=== PATIENT | male | born 1990 | race Caucasian/White ===

== ENCOUNTER 2016-12-09 10:15 | Emergency (ER) | payer SELFPAY ==
--- NOTE | ~2016-12-09 | ER ---
PATIENT'S NAME: ILEANA THOMPSON [facility] AGE: 26 Y [address] ROOM: [place] [address] LOCATION: [facility] ADMIT DATE: 12/09/2016 ER/Outpatient Report DISCHARGE DATE: 12/09/2016 FAMILY PHYSICIAN: PHYSICIAN, NO ATTENDING PHYSICIAN: Nav Dillon CHIEF COMPLAINT: Left wrist and back pain. HISTORY OF PRESENT ILLNESS: The patient states that he slipped on some ice last night. He has taken ibuprofen twice with no improvement in his symptoms. He did state that he fell kind of backwards toward his left side and landed with an outstretched left arm. The pain is across the top of the wrist. It only hurts with motion and does not hurt at rest. He denies any other issues. The back pain is kind of diffuse in the mid back and along the tail bone. No other issues, and it does not radiate. PAST MEDICAL HISTORY: Documented on the record and reviewed by me. SOCIAL HISTORY: Documented on the record and reviewed by me. MEDICATIONS: Documented on the record and reviewed by me. ALLERGIES: DOCUMENTED ON THE RECORD AND REVIEWED BY ME. REVIEW OF SYSTEMS: All systems were reviewed and negative except as noted in the HPI. PHYSICAL EXAMINATION: VITAL SIGNS: Blood pressure 128/77, pulse 89, respiratory rate 16, temperature 98.5, SpO2 is 97% on room air. Pain is rated 6/10 with a max of 8/10. GENERAL: An age-appropriate male, in no obvious pain or distress, resting comfortably on exam table. NEURO: The patient is awake and alert. GCS 15. No focal deficits or asymmetry on exam. HEENT: Normocephalic, atraumatic. Eyes are PERRL. Oropharynx is clear. NECK: Supple. Trachea is midline. CHEST: Heart is regular rate and rhythm with no murmurs. LUNGS: Clear to auscultation bilaterally with no rhonchi, wheezes, or rales. PATIENT'S NAME: ILEANA THOMPSON [facility] AGE: 26 Y [address] ROOM: [place] [address] LOCATION: [facility] ADMIT DATE: 12/09/2016 ER/Outpatient Report DISCHARGE DATE: 12/09/2016 FAMILY PHYSICIAN: PHYSICIAN, NO ATTENDING PHYSICIAN: Nav Dillon BACK: Notable for a very mild paraspinal tenderness throughout lower thoracic and lumbar region. There is mild tenderness over the coccyx. There is no pain or tenderness at the sciatic notch. No focal midline back pain. ABDOMEN: Soft, nontender, and nondistended. No rebound, guarding, or masses. EXTREMITIES: Unremarkable except for the left wrist. There is pain with palpation along the distal radius and ulna. No focal tenderness. No pain at the anatomical snuffbox. No pain with axial loading of the thumb. 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 He has full passive range of motion and active range of motion, though it is slow and limited by pain. There is no laxity of the wrist joint appreciated on exam. No piano sweet sign. SKIN: Intact throughout. Warm and dry. LABORATORY DATA AND X-RAYS: X-rays of the left wrist were obtained and negative per my read and confirmed by Radiology opinion. IMPRESSION: 1. Fall on outstretched arm. 2. Left wrist pain. 3. Back pain, musculoskeletal. EMERGENCY DEPARTMENT COURSE: The patient was evaluated as above. X-rays of the wrist were obtained and negative per Radiology. The patient does not warrant x-rays of the back at this time. He is given Tylenol for his discomfort. He is given a cock-up wrist splint. Tylenol and ibuprofen for pain. Follow up with primary care physician if not improving in 3 to 5 days. Rest, exercise, ice as needed as well. Return if worsening. MD NOLAN ECKERT/na /[id number] d: 12/09/162006 t: 12/11/16822, OUTPATIENT REPORT
== END 2016-12-09 12:50 | disposition disaster alternative care site (69) ==
LOC: GACC 10:15
DX: M25.532 Pain in left wrist (principal); M54.6 Pain in thoracic spine; M54.5 Low back pain; W19.XXXA Unspecified fall, initial encounter

== ENCOUNTER 2016-12-30 18:44 | Emergency (ER) | payer MEDICAID ==
--- NOTE | ~2016-12-30 | ER ---
PATIENT'S NAME: ILEANA TOHMPSON [facility] AGE: 26 Y [address] ROOM: [place] [address] LOCATION: [facility] ADMIT DATE: 12/30/2016 ER/Outpatient Report DISCHARGE DATE: 12/30/2016 FAMILY PHYSICIAN: Gregory Santana MD ATTENDING PHYSICIAN: Keegan Mora Admission date and time documented in the medical record. I saw the patient at 1900 hours. CHIEF COMPLAINT: Left chest tightness with left arm numbness and tingling. He also has anxiety. HISTORY OF PRESENT ILLNESS: This patient is a 26-year-old male, who about 30 minutes prior to admission to the emergency room developed some left anterior chest tightness, heaviness, and numbness down his left arm, and some tingling down his left arm. Got anxious about it and anxiety grew and grew. He started to have shortness of breath. No nausea, vomiting, diarrhea, or abdominal pain. The patient did get a little bit lightheaded, dizzy, but no syncope or near syncope. Recently, he has had upper respiratory infection. No headache, eyes, ears, nose, throat, neck, or spine pain. No fall or trauma. No urinary symptomatology. No joint or muscle swelling, redness, or pain. No skin eruptions or rash. Does have a history of anxiety, depression, but no psychosis. No neuro changes or endocrine problems. HOME MEDICATIONS: None. ALLERGIES: NONE. SOCIAL HISTORY: The patient smokes a pack of cigarettes per day. Occasional intake of alcohol. SIGNIFICANT PAST MEDICAL HISTORY: Tobacco abuse and anxiety. OPERATIONS: None. REVIEW OF SYSTEMS: All systems reviewed by me are negative with the exception of those discussed in the history of present illness. PATIENT'S NAME: ILEANA THOMPSON [facility] AGE: 26 Y [address] ROOM: [place], [place] [address] LOCATION: [facility] ADMIT DATE: 12/30/2016 ER/Outpatient Report DISCHARGE DATE: 12/30/2016 FAMILY PHYSICIAN: Gregory Santana MD ATTENDING PHYSICIAN: Keegan Mora PHYSICAL EXAMINATION: VITAL SIGNS: Temperature 98.4 tympanic, pulse 83, respirations 20, blood pressure 142/89, O2 saturation on room air is 96%. HEAD: Normocephalic. EYES, EARS, NOSE, THROAT: Clear. NECK: Negative. LUNGS: Clear. HEART: Regular. ABDOMEN: Soft, nontender. Good bowel tones. No organomegaly or abnormal mass palpable. EXTREMITIES: Intact. NEUROVASCULAR: Intact. SKIN: Clear. No skin eruptions or rash. LABORATORY AND X-RAYS: Chest x-ray showed no acute infiltrate or changes. EKG showed sinus rhythm. No acute ST elevation, ischemic change, or arrhythmia. Laboratory: D-dimer was normal less than 0.19. CRP was less than 0.29. Thyroid studies were normal. Sedimentation rate was 5. CMS was normal. Magnesium was 2.1. CPK, point of care cardiac enzymes were normal. White count was 8700, 54 segs, 36 lymphs, 6 monos, 2 eos, 1 baso, hemoglobin is 14.7, hematocrit 42.5, platelet count is 250,000. PTT was 28, pro-time was 10 with an INR of 1.0. Procalcitonin was less than 0.05. Lactate was 0.7. EMERGENCY DEPARTMENT COURSE: I did give the patient 1 mg of Ativan sublingual with marked improvement in his condition. IMPRESSION: Anxiety. No evidence of cardiac or respiratory etiology. PLAN: The patient dismissed home. Observation. Activity as tolerated. Fluids and diet as tolerated. Ativan 1 mg 3 times a day p.r.n. anxiety, #12. Follow up with personal physician as needed. Discussion ensued with the patient concerning my findings and recommendations, he understands. KEEGAN MORA MD SDS/modl PATIENT'S NAME: ILEANA THOMPSON [facility] AGE: 26 Y [address] ROOM: [place] [address] LOCATION: [facility] ADMIT DATE: 12/30/2016 ER/Outpatient Report DISCHARGE DATE: 12/30/2016 FAMILY PHYSICIAN: Gregory Santana MD ATTENDING PHYSICIAN: Keegan Mora /[id number] d: 12/31/16 0057 t: 12/31/16 1812, OUTPATIENT REPORT
[2016-12-30 19:19] LABS: BASOPHIL # 0.1 K/uL (0.0-0.2); BASOPHIL % 0.9 %; EOSINOPHIL # 0.2 K/uL (0.0-0.5); EOSINOPHIL % 2.3 %; HEMATOCRIT 42.5 % (37.0-53.0); HEMOGLOBIN 14.7 g/dL (12.0-17.0); IMMATURE GRANULOCYTE % 0.3 %; LYMPHOCYTE # 3.1 K/uL (0.8-4.0); LYMPHOCYTE % 36.1 %; MCHC 34.6 gm/dL (32.0-36.5); MCV 89.7 fl (83.0-98.0); MONOCYTE # 0.5 K/uL (0.0-1.0); MPV 8.8 fl (9.4-12.4); NEUTROPHIL # (ANC) 4.7 K/uL (1.4-9.0); NEUTROPHIL % 54.4 %; NRBC % 0 /100WBC (0-0.00); PLATELET COUNT 250 K/uL (150-450); RBC 4.74 M/uL (4.00-6.00); WBC 8.7 K/uL (4.0-11.0)
[2016-12-30 19:28] LABS: PTT 28 SECONDS (25-32)
[2016-12-30 19:40] LABS: ALBUMIN 4.3 gm/dL (3.5-5.0); ALK PHOS 82 IU/L (33-138); ALT 24 IU/L (12-78); AST 15 IU/L (10-40); BLOOD UREA NITROGEN 16 mg/dL (6-24); CHLORIDE 109 mMol/L (96-110); CO2 24 mMol/L (22-32); CPK 153 IU/L (35-332); CREATININE 0.9 mg/dL (0.6-1.3); ESTIMATED GFR (MDRD EQUATION) > 60; MAGNESIUM 2.1 mg/dL (1.3-2.6); SODIUM 141 mMol/L (135-145); TOTAL BILIRUBIN 0.3 mg/dL (0.0-1.5); TOTAL PROTEIN 7.6 g/dL (6.0-8.4)
[2016-12-30 20:28] LABS: BILIRUBIN URINE NEGATIVE (NEGATIVE); BLOOD URINE NEGATIVE /UL (NEGATIVE); GLUCOSE URINE NEGATIVE (NEGATIVE); KETONE URINE NEGATIVE (NEGATIVE); LEUKOCYTES URINE NEGATIVE /UL (NEGATIVE); NITRITE URINE NEGATIVE (NEGATIVE); PROTEIN URINE NEGATIVE (NEGATIVE); SPEC GRAVITY URINE 1.015 (1.003-1.035); UROBILINOGEN URINE 1 mg/dL (NORMAL)
[2016-12-30 20:29] LABS: COLOR URINE YELLOW (YELLOW); TURBIDITY URINE CLEAR (CLEAR)
== END 2016-12-30 20:26 | disposition disaster alternative care site (69) ==
LOC: GMED 18:44
PROVIDERS: Emergency Medicine
DX: F41.9 Anxiety disorder, unspecified (principal); F17.210 Nicotine dependence, cigarettes, uncomplicated

== ENCOUNTER 2017-01-23 16:41 | Emergency (ER) | payer MEDICAID ==
--- NOTE | ~2017-01-23 | ER ---
PATIENT'S NAME: ILEANA THOMPSON [facility] AGE: 26 Y [address] ROOM: [place] [address] LOCATION: [facility] ADMIT DATE: 01/23/2017 ER/Outpatient Report DISCHARGE DATE: 01/23/2017 FAMILY PHYSICIAN: PHYSICIAN, NO ATTENDING PHYSICIAN: Ivy Starr Time of Arrival: 1641 hours. Time of Evaluation: 1650 hours. CHIEF COMPLAINT: Nasal congestion, intermittent dizziness. HISTORY OF PRESENT ILLNESS: This is a 26-year-old male, who presents to the ER. He states he has had nasal congestion for 1 week. The patient states that he has been feeling so full inside of his head, it is making him feel dizzy. He states that he has felt nauseated because of it. He states the dizziness comes and goes, and he states that he has a history of anxiety, which makes the symptoms worsen. He did take 2 Augmentin pills 2 days ago but did not take any other pills for this. He is not taking anything [id number] for his symptoms. He told the nurse that he was having some cough, but he states he actually has not been having any cough. He feels like he has a slight headache at times as well. He states no one else at home is ill at this time. ALLERGIES: SEASONAL ALLERGIES. MEDICATIONS: Please see medication list in nurse's notes. PAST MEDICAL HISTORY: Anxiety. SOCIAL HISTORY: He does smoke marijuana. Does smoke cigarettes. REVIEW OF SYSTEMS: A 10-point review of system was completed and was negative with the exception of those discussed in the HPI. PHYSICAL EXAMINATION: VITAL SIGNS: Height 5 feet 11 inches stated, weight 67.7 kg taken, blood pressure is 148/79, pulse 103, respirations 18, temperature 98.3 degrees tympanically, saturations 97% on room air. Jamari Coma Score is 15. GENERAL: An alert, calm, well-developed male, in no acute distress. PATIENT'S NAME: ILEANA THOMPSON [facility] AGE: 26 Y [address] ROOM: [place] [address] LOCATION: [facility] ADMIT DATE: 01/23/2017 ER/Outpatient Report DISCHARGE DATE: 01/23/2017 FAMILY PHYSICIAN: PHYSICIAN, NO ATTENDING PHYSICIAN: Starr,Ivy A HEENT: Head: Normocephalic. Eyes: Pupils are equal and reactive to light. Ears: TMs display good light reflexes bilaterally. Auditory canals clear. Nose: Turbinates pink. He does have purulent drainage noted. Throat: No exudates are seen. He does have some postnasal drip noted. He does display moist mucous membranes. LUNGS: Clear to auscultation bilaterally. No wheezes or crackles. Normal respiratory effort. HEART: Regular rate and rhythm. No lifts, thrills, or murmurs. EXTREMITIES: No clubbing or cyanosis. He has full range of motion of all limbs. LABORATORY DATA AND X-RAYS: None were done per the patient's request. IMPRESSION: Sinusitis. ASSESSMENT AND PLAN: The patient wishes not to have any test done at this time, would just like us to treat him for his sinusitis. I did write him a prescription for Z-Chele to use as directed. He may meat pickler Neti Pot [id number] if he would wish to do that, and ask the Pharmacy for recommendations on decongestant since the stronger ones make him feel worse in his anxiety. He needs to monitor his symptoms closely. I advised him if he worsens, I would like him to follow up back here or with his primary care physician for followup care. The patient understands and agrees with care. BRAYAN TELLO PA-C FOR MD LUPE LOCKETT/na /[id number] d: 01/23/17 2348 t: 01/28/17 0648, OUTPATIENT REPORT
== END 2017-01-23 17:36 | disposition disaster alternative care site (69) ==
LOC: GMED 16:41
DX: J32.9 Chronic sinusitis, unspecified (principal); F41.9 Anxiety disorder, unspecified; F17.210 Nicotine dependence, cigarettes, uncomplicated

== ENCOUNTER 2017-02-05 09:09 | Emergency (ER) | payer MEDICAID ==
--- NOTE | ~2017-02-05 | ER ---
PATIENT'S NAME: ILEANA THOMPSON [facility] AGE: 26 Y [address] ROOM: [place] [address] LOCATION: [facility] ADMIT DATE: 02/05/2017 ER/Outpatient Report DISCHARGE DATE: 02/05/2017 FAMILY PHYSICIAN: PHYSICIAN, NO ATTENDING PHYSICIAN: Keegan Almodovar HISTORY OF PRESENT ILLNESS: The patient is a 26-year-old male who comes in with chief complaint of heart palpitations, which causes some lightheadedness, anxious feeling, and a little blurred vision at times. The patient was seen here a couple weeks ago for the same issue and workup including lab workup, EKG, and chest x-ray were all negative and are within normal limits. The patient admits to previous marijuana use, but states his last use was over a month ago. He does have an appointment at the [facility] tomorrow, but states this was getting "out of control" and he did not think he could wait that long. The patient denies any nausea, vomiting, abdominal pain, headache, fevers, chills, urinary symptoms, or increased swelling. The patient denies rash. The patient states this occurs several times during the day. After previous evaluation, the patient was given a diagnosis of possible sinusitis and was treated with a Z-Chele. The patient completed this course and states that this was not helpful. ALLERGIES: THE PATIENT HAS NO KNOWN MEDICAL ALLERGIES. MEDICATIONS: The patient takes Ativan p.r.n. for anxiety. PAST MEDICAL HISTORY: Anxiety. Otherwise, no significant past medical history. PAST SURGICAL HISTORY: The patient has no previous surgeries. SOCIAL HISTORY: The patient smokes a half to 3/4 pack a day. Does admit to alcohol use. He did have a few beers last night. The patient denies any illicit drug use, other than marijuana denies any current use. REVIEW OF SYSTEMS: A complete comprehensive review of systems was completed and is negative except as noted above in the HPI. PHYSICAL EXAMINATION: VITALS SIGNS: Weight 67 kilos, BP 123/82, pulse 83, respiratory rate 20, temp 97 TM, and O2 98% room air. PATIENT'S NAME: ILEANA THOMPSON [facility] AGE: 26 Y [address] ROOM: [place] [address] LOCATION: [facility] ADMIT DATE: 02/05/2017 ER/Outpatient Report DISCHARGE DATE: 02/05/2017 FAMILY PHYSICIAN: PHYSICIAN, NO ATTENDING PHYSICIAN: Keegan Almodovar GENERAL: The patient is in no acute distress. Alert and oriented x4. HEENT: Normal eye inspection. PERRLA. No nasal drainage. Mucous membranes moist. No posterior oropharynx edema or erythema. No exudate. No lymphadenopathy. Thyroid is nonpalpable. TMs clear bilaterally. CHEST: Clear to auscultation bilaterally. CARDIOVASCULAR: Regular rate and rhythm. No murmurs, rubs, gallops. ABDOMEN: Normal inspection. Soft, nontender, and nondistended. Normal bowel sounds. EXTREMITIES: Nontender. Moves all extremities. No pedal edema. SKIN: Warm, dry, and intact. No rash is noted. The patient is independent with his ADLs and appears well-nourished and hydrated. EMERGENCY DEPARTMENT COURSE: The patient had a workup as above, receive no treatments or IV fluids, and remained stable with vital signs stable. The patient did not have any symptoms during his ED course. IMPRESSION: Intermittent palpitations of unknown cause that could be secondary to anxiety. PLAN: The patient does have an appointment tomorrow with the health clinic the patient was advised to keep this appointment. We will plan to set up for a 24 hour Holter monitor as patient states this has happened several times a day in hopes of capturing event. The patient was advised to maintain adequate hydration, quit smoking, and stop marijuana use. DONNA KISER MED STUDENTMD RESIDENT FOR MD ELENITA CHOI/michelel /[id number] d: 02/05/17 1408 t: 02/10/17 0607, OUTPATIENT REPORT
--- NOTE | ~2017-02-05 | ER ---
PATIENT'S NAME: ILEANA THOMPSON [facility] AGE: 26 Y [address] ROOM: [place] [address] LOCATION: [facility] ADMIT DATE: 02/05/2017 ER/Outpatient Report DISCHARGE DATE: 02/05/2017 FAMILY PHYSICIAN: , BRANDON ATTENDING PHYSICIAN: Keegan Almodovar This patient is a 26-year-old male who presented to the emergency room with complaints of palpitations. I saw this patient along with Dr. Martin, resident, who is working down here with me in the emergency department. See Dr. Martin's evaluation dictation on this patient. I agree with her assessment, impression, final diagnosis, and treatment plan. MD TIMBO CHOI/modl /[id number] d: 02/05/17 1443 t: 02/06/17 0612, OUTPATIENT REPORT
[2017-02-05 09:53] LABS: BASOPHIL # 0.1 K/uL (0.0-0.2); EOSINOPHIL # 0.3 K/uL (0.0-0.5); EOSINOPHIL % 4.7 %; HEMOGLOBIN 15.3 g/dL (12.0-17.0); IMMATURE GRANULOCYTE % 0.2 %; LYMPHOCYTE # 1.7 K/uL (0.8-4.0); LYMPHOCYTE % 29.3 %; MCH 31.4 pg (27.0-34.0); MCHC 34.8 gm/dL (32.0-36.5); MCV 90.2 fl (83.0-98.0); MONOCYTE # 0.4 K/uL (0.0-1.0); MONOCYTE % 7.5 %; MPV 8.7 fl (9.4-12.4); NEUTROPHIL # (ANC) 3.3 K/uL (1.4-9.0); NEUTROPHIL % 57.3 %; NRBC % 0 /100WBC (0-0.00); PLATELET COUNT 237 K/uL (150-450); RBC 4.88 M/uL (4.00-6.00); RDW-CV 12.4 % (11.9-14.6); WBC 5.8 K/uL (4.0-11.0)
[2017-02-05 10:15] LABS: AMPHETAMINE NEGATIVE (NEGATIVE); BARBITURATE NEGATIVE (NEGATIVE); COCAINE NEGATIVE (NEGATIVE); OPIATES NEGATIVE (NEGATIVE)
[2017-02-05 10:32] LABS: ALBUMIN 4.2 gm/dL (3.5-5.0); ALK PHOS 85 IU/L (33-138); ALT 24 IU/L (12-78); AST 20 IU/L (10-40); BLOOD UREA NITROGEN 12 mg/dL (6-24); CALCIUM 8.8 mg/dL (8.5-10.5); CHLORIDE 110 mMol/L (96-110); CO2 25 mMol/L (22-32); CREATININE 0.9 mg/dL (0.6-1.3); ESTIMATED GFR (MDRD EQUATION) > 60; SODIUM 142 mMol/L (135-145); TOTAL PROTEIN 7.7 g/dL (6.0-8.4)
[2017-02-05 10:33] LABS: TOTAL BILIRUBIN 0.4 mg/dL (0.0-1.5)
== END 2017-02-05 11:21 | disposition disaster alternative care site (69) ==
LOC: GMED 09:09
PROVIDERS: Emergency Medicine
DX: R00.2 Palpitations (principal); F41.9 Anxiety disorder, unspecified; F17.210 Nicotine dependence, cigarettes, uncomplicated

== ENCOUNTER 2017-02-28 04:16 | Emergency (ER) | payer MEDICAID ==
--- NOTE | ~2017-02-28 | ER ---
PATIENT'S NAME: ILEANA THOMPSON [facility] AGE: 26 Y [address] ROOM: [place] [address] LOCATION: ED ADMIT DATE: 02/28/2017 ER/Outpatient Report DISCHARGE DATE: 02/28/2017 FAMILY PHYSICIAN: PHYSICIAN, BRANDON ATTENDING PHYSICIAN: Nav Dillon CHIEF COMPLAINT: Possible allergic reaction. HISTORY OF PRESENT ILLNESS: The patient woke up from bed around 4 o'clock this morning with itching. He went to the bathroom and noticed redness on his side backs, arms, and behind his knees. Decided to come in for evaluation. He did not take any medication as he is very scared of anaphylaxis, and he denies any new exposures, but did recently move and he thinks he may have been exposed to something he does not know about. He denies any chest pain, shortness of breath, palpitations, difficulty breathing, change in bowel or bladder habits, or increased secretions. PAST MEDICAL HISTORY: Documented on the record and reviewed by me. SOCIAL HISTORY: Documented on the record and reviewed by me. MEDICATIONS: Documented on the record and reviewed by me. ALLERGIES: DOCUMENTED ON THE RECORD AND REVIEWED BY ME. REVIEW OF SYSTEMS: All systems reviewed and negative except as noted in the HPI. PHYSICAL EXAMINATION: VITAL SIGNS: Blood pressure 121/79, pulse 98, respiratory rate is 18, temp 96.0, SpO2 is 98% on room air. Pain 0/10. GENERAL: Age-appropriate male. No obvious pain or distress, sitting upright on exam table. NEUROLOGIC: Awake and alert. GCS 15. No focal deficits. No asymmetry. HEENT: Normocephalic, atraumatic. Eyes are PERRL. Oropharynx is clear. NECK: Supple. Trachea is midline. No stridor. HEART: Borderline tachycardic. No murmurs. LUNGS: Clear to auscultation bilaterally with no rhonchi, wheezes, or rales. ABDOMEN: Soft, nontender, and nondistended. No rebound or guarding. PATIENT'S NAME: ILEANA THOMPSON [facility] AGE: 26 Y [address] ROOM: [place] [address] LOCATION: ED ADMIT DATE: 02/28/2017 ER/Outpatient Report DISCHARGE DATE: 02/28/2017 FAMILY PHYSICIAN: PHYSICIAN, BRANDON ATTENDING PHYSICIAN: Nav Dillon BACK: Normal to inspection and palpation. EXTREMITIES: Warm and well perfused. No abnormalities. SKIN: There is a hive rash most prominent on the right medial and volar arm. It is also prominent in the left AC and behind both knees. There is some prominence of the urticarial rash on the right flank area as well. It does rapidly change and progress and involute. LABORATORY DATA AND X-RAYS: None. IMPRESSION: Urticarial hives. EMERGENCY DEPARTMENT COURSE: The patient was seen and evaluated. Unclear source of rash. Not consistent with anaphylaxis. The patient was given Benadryl, prednisone, and famotidine. He had marked improvement in his itching and the rash was improving significantly. The patient was encouraged that this is a hive rash. PLAN: He needs to follow up with his usual providers as needed. Return immediately if any difficulty breathing. May re-dose Benadryl. MD NOLAN ECKERT/michelel /[id number] d: 02/28/17 0657 t: 03/05/17 0952, OUTPATIENT REPORT
== END 2017-02-28 05:56 | disposition disaster alternative care site (69) ==
LOC: GMED 04:16
DX: L50.9 Urticaria, unspecified (principal); F41.9 Anxiety disorder, unspecified; Z71.6 Tobacco abuse counseling; F17.210 Nicotine dependence, cigarettes, uncomplicated
CPT/HCPCS: J7512

== ENCOUNTER 2017-02-28 20:21 | Emergency (ER) | payer MEDICAID ==
--- NOTE | ~2017-02-28 | ER ---
PATIENT'S NAME: ILEANA THOMPSON [facility] AGE: 26 Y [address] ROOM: [place] [address] LOCATION: [facility] ADMIT DATE: 02/28/2017 ER/Outpatient Report DISCHARGE DATE: 02/28/2017 FAMILY PHYSICIAN: PHYSICIAN, NO ATTENDING PHYSICIAN: Nav Dillon CHIEF COMPLAINT: Hives. HISTORY OF PRESENT ILLNESS: The patient was seen this morning for hive rash. He was treated and released after marked improvement in his rash. Throughout the day today, he began to have improvement in his symptoms. This evening, he was cleaning the bathroom at his new residence and he began to have severe itching and burning on his back that is spreading to his sides and throat. He did not take any medications as he was concerned about side effects and came directly to the emergency department. He denies any difficulty breathing or shortness of breath. PAST MEDICAL HISTORY: Documented on the record and reviewed by me. SOCIAL HISTORY: Documented on the record and reviewed by me. MEDICATIONS: Documented on the record and reviewed by me. ALLERGIES: DOCUMENTED ON THE RECORD AND REVIEWED BY ME. REVIEW OF SYSTEMS: All systems were reviewed and negative except as noted in the HPI. PHYSICAL EXAMINATION: VITAL SIGNS: Blood pressure 135/89, pulse is 106, respiratory rate is 20, temperature 97.4, SpO2 is 98% on room air. GENERAL: Age-appropriate male, anxious appearance, no respiratory distress. No pain sitting upright on exam table. NEURO: The patient is awake and alert. GCS is 15. He has anxious affect and appearance. No focal deficits. No asymmetry. Follows commands. Speaks normally. Normal gait. HEENT: Normocephalic, atraumatic. Eyes are PERRL. Oropharynx is clear. NECK: Supple. Trachea is midline. CHEST/HEART: Regular rate and rhythm with no murmurs. Borderline PATIENT'S NAME: ILEANA THOMPSON [facility] AGE: 26 Y [address] ROOM: [place] [address] LOCATION: [facility] ADMIT DATE: 02/28/2017 ER/Outpatient Report DISCHARGE DATE: 02/28/2017 FAMILY PHYSICIAN: PHYSICIAN, NO ATTENDING PHYSICIAN: Nav Dillon tachycardic. LUNGS: Clear to auscultation bilateral with no rhonchi, wheezes, or rales, no stridor. ABDOMEN: Soft, nontender, and nondistended. No rebound or guarding. BACK: Nontender to palpation. No CVA tenderness. EXTREMITIES: Warm and well perfused. SKIN: Skin is notable for a hive-like rash with erythema in confluence from the level of the jaw inferiorly across both shoulders down the back wrapping around the flanks most prominent on the left. It is erythematous with confluence of the hive like rash. No skin breakdown. No pustules. LABORATORY DATA AND X-RAYS: None. IMPRESSION: Hives. EMERGENCY DEPARTMENT COURSE: The patient was seen and evaluated as above. No evidence of anaphylaxis. Hemodynamically stable. The patient was given Decadron, famotidine and Benadryl. After 1 hour and 10 minutes, the patient had marked improvement in his symptoms. His rash was receding significantly. He never had any other symptoms. Vital signs stabilized. He was discharged in good condition. He did not receive any epinephrine. I will give him a dose of Decadron to take tomorrow. He should take Benadryl as needed if symptoms return. MD NOLAN ECKERT/na /[id number] d: 03/01/17 0535 t: 03/05/17 0952, OUTPATIENT REPORT
== END 2017-02-28 22:27 | disposition disaster alternative care site (69) ==
LOC: GMED 20:21
DX: L50.9 Urticaria, unspecified (principal); F41.9 Anxiety disorder, unspecified; F17.210 Nicotine dependence, cigarettes, uncomplicated
CPT/HCPCS: J0171; J1100

== ENCOUNTER 2017-03-19 14:19 | Emergency (ER) | payer MEDICAID ==
--- NOTE | ~2017-03-19 | ER ---
PATIENT'S NAME: ILEANA THOMPSON [facility] AGE: 26 Y [address] ROOM: [place] [address] LOCATION: [facility] ADMIT DATE: 03/19/2017 ER/Outpatient Report DISCHARGE DATE: 03/19/2017 FAMILY PHYSICIAN: PHYSICIAN, NO ATTENDING PHYSICIAN: Josh Beltran Time of Arrival: 1432 hours. Time of Exam: 1432 hours. CHIEF COMPLAINT: Headache. HISTORY OF PRESENT ILLNESS: The patient states he has had a headache off and on for the past 5 days. He states sometimes it is anteriorly and sometimes it is posteriorly. When he does have the headache, he does get nauseated, but he has not vomited. He denies having fever or chills. He has not had any visual disturbance. No photophobia. Has not been dizzy or lightheaded. Denies any recent head trauma. He states his eyes water when he has a headache, otherwise, no other problems. ALLERGIES: NO KNOWN ALLERGIES. CURRENT MEDICATIONS: He states he has been taking Tylenol and ibuprofen for the headaches without any relief. PAST MEDICAL HISTORY: 1. Skull fractures. He states he fell down a flight of stairs when he was 6 or 7-year-old. 2. Anxiety. PAST SURGERIES: Negative. SOCIAL HISTORY: He smokes half pack per day and has for the past 10 years. Drinks alcohol at least three times a week on a social basis. Denies use of marijuana or drugs. REVIEW OF SYSTEMS: All negative other than those mentioned in the HPI. PHYSICAL EXAMINATION: PATIENT'S NAME: ILEANA THOMPSON [facility] AGE: 26 Y [address] ROOM: [place] [address] LOCATION: [facility] ADMIT DATE: 03/19/2017 ER/Outpatient Report DISCHARGE DATE: 03/19/2017 FAMILY PHYSICIAN: PHYSICIAN, NO ATTENDING PHYSICIAN: Josh Beltran VITAL SIGNS: He weighs 67.4 kg, blood pressure is 141/91, pulse of 95, respirations 18, temperature of 97.9, O2 saturation was 98% on room air. Jamari Coma Scale is 15. GENERAL: He is awake, alert, and oriented x4. SKIN: [place], warm, and dry. RESPIRATIONS: Even and nonlabored. HEENT: Pupils are equal and reactive to light. Extraocular movement is intact. TMs are clear. Nasal is boggy. Oropharynx is clear. NECK: Supple. No lymphadenopathy. LUNGS: Lung sounds are clear throughout. HEART: Regular rate and rhythm. ABDOMEN: Soft and nondistended. Bowel sounds are present. MUSCULOSKELETAL: He moves all extremities strongly and equally. Walks in with a steady even gait. NEUROLOGIC: Cranial nerves 2 through 12 are grossly intact. The patient was given Toradol 60 mg IM. IMPRESSION: Headache. PLAN: Symptoms improved some with rest. He will be discharged home. Continue Tylenol as needed. Follow up with his primary provider in the next 2-3 days if symptoms persist. He verbalizes understanding. BIANCA ARCHER APRN FOR [facility] RODRIGUEZ/na /[id number] d: 03/20/17 0021 t: 03/31/17 1233, OUTPATIENT REPORT
== END 2017-03-19 14:55 | disposition disaster alternative care site (69) ==
LOC: GMED 14:19
DX: R51 Headache (principal); F41.9 Anxiety disorder, unspecified; F17.210 Nicotine dependence, cigarettes, uncomplicated; Z87.81 Personal history of (healed) traumatic fracture
CPT/HCPCS: J1885

== ENCOUNTER 2017-03-22 09:48 | Emergency (ER) | payer MEDICAID ==
--- NOTE | ~2017-03-22 | ER ---
PATIENT'S NAME: ILEANA THOMPSON [facility] AGE: 26 Y [address] ROOM: [place] [id number] LOCATION: ED ADMIT DATE: 03/22/2017 ER/Outpatient Report DISCHARGE DATE: 03/22/2017 FAMILY PHYSICIAN: PHYSICIAN, NO ATTENDING PHYSICIAN: Nav Dillon CHIEF COMPLAINT: Headache. HISTORY OF PRESENT ILLNESS: The patient has had a headache for the last 8 days. It has been getting worse. He did come to the ER recently where he was treated with Toradol and feels like that did not help much. Today, he was so lightheaded that he fell down at home. He does not have any pain from that fall. He denies any other issues. He states that he feels like he stood up too fast all the time. He denies any vertigo-like symptoms such as room spinning. He states his vision is not right, but he cannot really explain what he means by that. PAST MEDICAL HISTORY: Documented on the record and reviewed by me. SOCIAL HISTORY: Documented on the record and reviewed by me. MEDICATION: Documented on the record and reviewed by me. ALLERGIES: DOCUMENTED ON THE RECORD AND REVIEWED BY ME. REVIEW OF SYSTEMS: All systems reviewed and negative except as noted in the HPI. PHYSICAL EXAMINATION: VITAL SIGNS: Blood pressure 131/92, pulse 96, respiratory rate 16, temperature 97.7, SpO2 is 96% on room air. Pain 0/10. GENERAL: Age-appropriate male. Upright on exam table in no acute pain or distress. NEURO: The patient is awake and alert. GCS is 15. No focal deficits. No asymmetry. No unusual eye movements on head impulse testing or skew testing. He has no nystagmus on exam. Gait is normal. HEENT: Normocephalic, atraumatic. Eyes are PERRL. Oropharynx clear. NECK: Supple. Trachea is midline. CHEST/HEART: Regular rate and rhythm. No murmurs. LUNGS: Clear to auscultation bilateral. No rhonchi, wheezes, or rales. PATIENT'S NAME: ILEANA THOMPSON [facility] AGE: 26 Y [address] ROOM: [place], [place] [id number] LOCATION: ED ADMIT DATE: 03/22/2017 ER/Outpatient Report DISCHARGE DATE: 03/22/2017 FAMILY PHYSICIAN: PHYSICIAN, NO ATTENDING PHYSICIAN: Nav Dillon ABDOMEN: Soft, nontender, and nondistended. BACK: Back is normal to inspection and palpation. EXTREMITIES: Warm and well perfused. SKIN: Clean, dry, and intact. LABORATORY DATA AND X-RAYS: Head CT is unremarkable per Radiology. IMPRESSION: Cephalgia without headache history. EMERGENCY DEPARTMENT COURSE: The patient was evaluated as above. Not consistent with subarachnoid hemorrhage, meningitis, or stroke. Head CT was obtained to rule out any intracranial masses or evidence of intracranial hypertension. No current findings to support that. He was treated with Compazine, Benadryl, Toradol, and fluids with complete resolution of his headache. I offered steroids to prevent rebound. He stated he would prefer to forego that. The patient was discharged in good condition with complete resolution of his headache. MD NOLAN ECKERT/na /[id number] d: 03/22/17 1257 t: 03/25/17 1123, OUTPATIENT REPORT
== END 2017-03-22 11:00 | disposition disaster alternative care site (69) ==
LOC: GMED 09:48
DX: R51 Headache (principal); F41.9 Anxiety disorder, unspecified; Z79.899 Other long term (current) drug therapy
CPT/HCPCS: J0780; J1200; J1885; J7030